=== PATIENT | female | born 1980 | race Caucasian/White ===

== ENCOUNTER 2019-12-05 21:11 | Emergency (ER) | payer OTHER ==
[~2019-12-05] VITALS: Ht 162.6 cm; Wt 99.8 kg
[2019-12-05] MEDS ORDERED: ASPIRIN 81 MG TAB.CHEW PO ONE (21:30)
--- NOTE | 2019-12-05 21:44 | NUR ---
Dr. Emmanuel at bedside for MSE
[2019-12-05 21:46] LABS: BASOPHILS # (AUTO) 0.1 K/uL (0.0-8.0); BASOPHILS % (AUTO) 0.7 % (0.0-2.0); EOSINOPHILS # (AUTO) 0.2 K/uL (0.0-0.7); EOSINOPHILS % (AUTO) 1.5 % (0.0-7.0); HEMOGLOBIN 13.7 g/dL (10.9-14.3); LYMPHOCYTES # (AUTO) 3.8 K/uL (20.0-40.0); LYMPHOCYTES % (AUTO) 33.7 % (20.5-51.5); MEAN CORPUSCULAR HEMOGLOBIN 30.8 uug (24.7-32.8); MEAN CORPUSCULAR HGB CONC 33 g/dL (32.3-35.6); MEAN CORPUSCULAR VOLUME 92.4 fL (75.5-95.3); MONOCYTES # (AUTO) 0.6 K/uL (2.0-10.0); MONOCYTES % (AUTO) 5.7 % (0.0-11.0); NEUTROPHILS # (AUTO) 6.6 K/uL (1.8-8.9); NEUTROPHILS % (AUTO) 58.4 % (38.5-71.5); PLATELET COUNT (AUTO) 389 K/uL (179-408); RED BLOOD CELL COUNT(AUTO) 4.43 MIL/uL (3.63-4.92); WHITE BLOOD COUNT (AUTO) 11.3 K/uL (3.8-11.8)
[2019-12-05] MEDS ORDERED: ASPIRIN 81 MG TAB.CHEW ONE (21:50)
[2019-12-05 21:51] LABS: CREATININE 0.8 mg/dL (0.6-1.3)
[2019-12-05 22:03] LABS: BILIRUBIN,DIRECT 0.1 mg/dL (0.0-0.2); BILIRUBIN,TOTAL 0.2 mg/dL (0.2-1.0)
[2019-12-05] MEDS ORDERED: LORAZEPAM 0.5 MG TABLET PO ONE (22:30)
--- NOTE | 2019-12-05 22:47 | NUR ---
No signs of distress noted, patien tnoted resting in bed, Vitals stable
[2019-12-05] MEDS ORDERED: LORAZEPAM 0.5 MG TABLET ONE (22:57)
--- NOTE | 2019-12-06 | NUR ---
Patient noted resting in bed, no acute distress, vitals WNL
[2019-12-06] MEDS ORDERED: LEVOTHYROXINE SODIUM 100 MCG TABLET ONE (00:41)
[2019-12-06] MEDS ORDERED: LEVOTHYROXINE SODIUM 100 MCG TABLET PO ONE (00:45)
--- NOTE | 2019-12-06 01:21 | NUR ---
Patient discharged to home in stable condition. Patient noted ambuating with steady gait, instructed to follow up with primary care physican. No signs of distress noted,no complaints of pain. Written and verbal after care instructions given. Patient verbalizes understanding of instructions. Stressed follow up or return to ER for worsening s/s.
[2019-12-06 01:25] VITALS: BP 118/63
== END 2019-12-06 01:21 | disposition home or self-care (01) ==
LOC: ER 21:17
DX: R07.9 Chest pain, unspecified (principal); E03.9 Hypothyroidism, unspecified; E66.01 Morbid (severe) obesity due to excess calories; Z71.3 Dietary counseling and surveillance
CPT/HCPCS: 36415; 70030-TC; 71045; 84443; 85025; 93005; A4663

== ENCOUNTER 2020-01-06 19:20 | Emergency (ER) | payer OTHER ==
[~2020-01-06] VITALS: Ht 157.5 cm; Wt 99.8 kg
[2020-01-06] MEDS ORDERED: LEVO75TA90 PO (19:39)
--- NOTE | 2020-01-06 19:55 | NUR ---
[employer] control systems technician #[id number] using [employer] initiated. ERMD on the line with patient for consultation.
[2020-01-06 20:41] LABS: *BILIRUBIN,URIN 1+ (NEGATIVE); *BLOOD, URINE 3+ (NEGATIVE); *CLARITY,URINE CLOUDY (CLEAR); *COLOR,URINE Orange (YELLOW); *KETONES,URINE NEGATIVE (NEGATIVE); LEUKOCYTE ESTERASE ,URINE NEGATIVE (NEGATIVE); NITRITE, URINE NEGATIVE (NEGATIVE); UGLUCOSE NEGATIVE (NEGATIVE)
[2020-01-06 20:42] LABS: BASOPHILS % (AUTO) 0.6 % (0.0-2.0); EOSINOPHILS % (AUTO) 0.3 % (0.0-7.0); HEMATOCRIT 37.2 % (31.2-41.9); HEMOGLOBIN 12.6 g/dL (10.9-14.3); LYMPHOCYTES # (AUTO) 1.2 K/uL (20.0-40.0); LYMPHOCYTES % (AUTO) 22.3 % (20.5-51.5); MEAN CORPUSCULAR HEMOGLOBIN 31.1 uug (24.7-32.8); MEAN CORPUSCULAR HGB CONC 34 g/dL (32.3-35.6); MEAN CORPUSCULAR VOLUME 91.9 fL (75.5-95.3); MONOCYTES # (AUTO) 0.4 K/uL (2.0-10.0); MONOCYTES % (AUTO) 6.9 % (0.0-11.0); NEUTROPHILS # (AUTO) 3.8 K/uL (1.8-8.9); NEUTROPHILS % (AUTO) 69.9 % (38.5-71.5); PLATELET COUNT (AUTO) 274 K/uL (179-408); RED BLOOD CELL COUNT(AUTO) 4.05 MIL/uL (3.63-4.92); WHITE BLOOD COUNT (AUTO) 5.4 K/uL (3.8-11.8)
[2020-01-06 20:58] LABS: BILIRUBIN,DIRECT 0.1 mg/dL (0.0-0.2); BILIRUBIN,TOTAL 0.2 mg/dL (0.2-1.0); CREATININE 0.7 mg/dL (0.6-1.3); TOTAL PROTEIN, SERUM 7.7 g/dL (6.4-8.2)
[2020-01-06 21:45] LABS: BACTERIA,URINE FEW /HPF (NONE SEEN); RBC,URINE 50-80 /HPF (0-3)
[2020-01-06 21:46] LABS: SQUAMOUS EPITHELIAL CELL,UR FEW /HPF (NONE SEEN)
[2020-01-06] MEDS ORDERED: PHENAZOPYRIDINE HCL 100 MG TABLET PO ONE (22:15)
[2020-01-06] MEDS ORDERED: NITROFURANTOIN/NITROFURAN MAC 100 MG CAPSULE PO ONE (22:15)
[2020-01-06] MEDS ORDERED: PHENAZOPYRIDINE HCL 100 MG TABLET ONE (22:23)
[2020-01-06] MEDS ORDERED: NITROFURANTOIN/NITROFURAN MAC 100 MG CAPSULE ONE (22:23)
--- NOTE | 2020-01-06 22:45 | NUR ---
Patient discharged to home in stable condition. Written and verbal after care instructions given. Patient verbalizes understanding of instructions. Stressed follow up or return to ER for worsening s/s. Patient ambulated with stable gait.
[2020-01-06 22:46] VITALS: BP 135/75
== END 2020-01-06 22:46 | disposition home or self-care (01) ==
LOC: ER 19:20
DX: N30.90 Cystitis, unspecified without hematuria (principal); Z20.828 Contact with and (suspected) exposure to other viral communicable diseases
CPT/HCPCS: 36415; 80048; 80076; 81001; 83690; 84484; 84702; 85025; 85730; 99283; U0003; 70030-TC; A4663

== ENCOUNTER 2020-11-14 18:43 | Emergency (ER) | payer OTHER ==
[~2020-11-14] VITALS: Ht 167.6 cm; Wt 87.5 kg
[~2020-11-14 18:43] MED LIST: LEVO75TA90 PO
[2020-11-14] MEDS ORDERED: PANT40TA49 PO (18:53)
--- NOTE | 2020-11-14 18:58 | NUR ---
Dr. Emmanuel at bedside for mse.
--- NOTE | 2020-11-14 19:00 | NUR ---
Pt. came from home complaining of upper abdomen pain with nausea and vomiting starting today. Pain is 10/10 and radiates to her back. Pt. is nauseous and had two vomiting episodes at home. Pt. is accompanied by her daughter. Pt. reports that in July she had a gastric band surgery done. She wants to make sure there are no complications from her surgery. Her vitals are stable. Will continue to monitor.
[2020-11-14 19:15] LABS: *URINE HCG, QUAL NEGATIVE (NEGATIVE)
[2020-11-14] MEDS ORDERED: ONDANSETRON 4 MG/2 ML VIAL IV ONE (19:15)
[2020-11-14] MEDS ORDERED: IV NORMAL SALINE 500 ML BAG IV ONE (19:15)
[2020-11-14] MEDS ORDERED: HYDROMORPHONE 1 MG/1 ML DISP.SYRIN IV ONE (19:15)
[2020-11-14] MEDS ORDERED: FAMOTIDINE. 20 MG/2 ML VIAL IV ONE ×2 (19:15→19:22)
[2020-11-14] MEDS ORDERED: ONDANSETRON 4 MG/2 ML VIAL ONE (19:22)
[2020-11-14] MEDS ORDERED: HYDROMORPHONE 1 MG/1 ML DISP.SYRIN ONE (19:22)
[2020-11-14] MEDS ORDERED: DIATR MEGLU/DIATRIZOATE SODIUM 30 ML BOTTLE ONE (19:24)
[2020-11-14] MEDS ORDERED: IOHEXOL 300MG/ML 100 ML INFUS..BTL ONE (20:15)
[2020-11-14] MEDS ORDERED: SWABABLE VALVE TRANSFER SET EA MC ONE (20:15)
[2020-11-14] MEDS ORDERED: IV NORMAL SALINE 250 ML IV ONE (20:15)
--- NOTE | 2020-11-14 20:17 | NUR ---
Pt. in bed resting. States her pain has reduced to 2/10. Pts. daughter is at bedside.
--- NOTE | 2020-11-14 20:17 | NUR ---
US at bedside to do US.
--- NOTE | 2020-11-14 20:36 | NUR ---
Patient taken to CT.
[2020-11-14 20:41] LABS: HEMATOCRIT 36.3 % (31.2-41.9); MEAN CORPUSCULAR HEMOGLOBIN 30.7 uug (24.7-32.8); MEAN CORPUSCULAR VOLUME 92.3 fL (75.5-95.3); PLATELET COUNT (AUTO) 251 K/uL (179-408)
[2020-11-14 20:48] LABS: CARBON DIOXIDE 28 mmol/L (21-32); CHLORIDE 106 mmol/L (98-107); CREATININE 0.5 mg/dL (0.6-1.3); GLUCOSE 97 mg/dL (74-106); POTASSIUM 4.1 mmol/L (3.5-5.1); UREA NITROGEN, BLOOD 12 mg/dL (7-18)
[2020-11-14 20:54] LABS: ALANINE AMINOTRANSFERASE 323 U/L (14-59); ALKALINE PHOSPHATASE 71 U/L (50-136); ASPARTATE AMINOTRANSFERASE 582 U/L (15-37); BILIRUBIN,DIRECT 0.6 mg/dL (0.0-0.2); BILIRUBIN,TOTAL 0.7 mg/dL (0.2-1.0); LIPASE 149 U/L (73-393); TOTAL PROTEIN, SERUM 6.8 g/dL (6.4-8.2)
--- NOTE | 2020-11-14 20:55 | NUR ---
Pt returned from ct.
--- NOTE | 2020-11-14 21:53 | NUR ---
Called [facility] to request the radiologist Dr. Mcallister call Dr. Emmanuel at Dr. Emmanuel's request to discuss the gallbladder US. [facility] said a radiologist will call Dr. Emmanuel back.
[2020-11-14] MEDS ORDERED: HYDR-4209 PO (22:22)
[2020-11-14] MEDS ORDERED: ONDA4TAB5 PO (22:22)
[2020-11-14 22:27] VITALS: BP 105/71
--- NOTE | 2020-11-14 22:36 | NUR ---
Patient discharged to home in stable condition. Written and verbal after care instructions given. Patient verbalizes understanding of instructions. Stressed follow up or return to ER for worsening s/s. Patient out of ER with steady gait, no acute signs of distress, VSS, all belongings taken, provided with copies of lab and CT results, IV site discontinued.
== END 2020-11-14 22:37 | disposition home or self-care (01) ==
LOC: ER 18:45
DX: K80.20 Calculus of gallbladder without cholecystitis without obstruction (principal); Z98.84 Bariatric surgery status; E03.9 Hypothyroidism, unspecified
CPT/HCPCS: 36415; 71045; 74177; 76705; 80048; 80076; 83690; 84484; 84703; 85025; 93005; 96361; 96374; 96375; 99285; J1170; J2405; J3490; Q9967; 70030-TC; A4663; J7030; J7050; Q9963